=== PATIENT | male | born 1950 | race Caucasian/White ===

== ENCOUNTER 2024-08-26 06:13 | Day surgery (SDC) | payer MEDICARE, OTHER, SELFPAY ==
[2024-08-26] VITALS (11 sets, daily range): BP systolic 117–134; BP diastolic 52–84; PULSE 70–82; RESP 12–21; TEMP 36.2–36.6; O2SAT 93–97; BMI 25.4
[2024-08-26] MEDS: SODIUM CHLORIDE 0.9 % (FLUSH) 10 ML SYRINGE IVF (06:52)
[2024-08-26] MEDS: LACTATED RINGERS 1000 ML 1,000 ML 100 ML IV ×2 (06:52→09:05)
--- NOTE | 2024-08-26 07:30 | W.PM.H&PU ---
History & Physical Update History & Physical Update H&P Reviewed and patient assessed: No changes noted
[2024-08-26] MEDS: CEFAZOLIN 1 GM inj IVP (07:36)
--- NOTE | 2024-08-26 07:46 | SUR.OPER ---
PATIENT QUESTIONS ANSWERED SATISFACTORILY PREOPERATIVELY. PATIENT BROUGHT TO OR #1 PER CART. Patient positioned supine on OR #1 bed. PATIENT QUESTIONS ANSWERED SATISFACTORILY PREOPERATIVELY. Final approval of positioning by surgeon. BILATERAL ARMS TUCKED IN A NEUTRAL POSITION.
[2024-08-26] MEDS: BUPIVACAINE 0.25% 30 ML INJECTION (07:50)
--- NOTE | 2024-08-26 09:40 | P.ANES_ITS ---
Anesthesia Charges Start Date/Time Anesthesia Start Date: 08/26/24 Anesthesia Start Time: 07:27 Stop Date/Time Anesthesia Stop Date: 08/26/24 Anesthesia Stop Time: 09:29 Summary Extremes of Age - Over 70 or under 1: LINUX SUPPORT ENGINEER Coding CPT Codes CPT Codes: ANESTH REPAIR OF HERNIA - 61438 ([id number]) P2 - PATIENT W/MILD SYST DISEASE, QX - LINUX SUPPORT ENGINEER SVC W/ MD MED DIRECTION, QK - PAPER COLORER 2-4 CNCRNT ANES PROC Additional Codes: Summary - Extremes of Age - Over 70 or under 1: LINUX SUPPORT ENGINEER ([id number])
--- NOTE | 2024-08-26 09:40 | W.ANESCHARGE ---
Anesthesia Charges Start Date/Time Anesthesia Start Date: 08/26/24 Anesthesia Start Time: 07:27 Stop Date/Time Anesthesia Stop Date: 08/26/24 Anesthesia Stop Time: 09:29 Summary Extremes of Age - Over 70 or under 1: NAPHTHALENE STILL OPERATOR Coding CPT Codes CPT Codes: ANESTH REPAIR OF HERNIA - 48547 ([id number]) P2 - PATIENT W/MILD SYST DISEASE, QX - NAPHTHALENE STILL OPERATOR SVC W/ MD MED DIRECTION, QK - DEVELOPMENTAL THERAPIST 2-4 CNCRNT ANES PROC Additional Codes: Summary - Extremes of Age - Over 70 or under 1: NAPHTHALENE STILL OPERATOR ([id number])
--- NOTE | 2024-08-26 10:01 | PM.GSPRC ---
Operative Note Date of procedure: 08/26/24 Pre-op diagnosis: Left inguinal hernia Post-op diagnosis: Same, direct and indirect hernia Type of Procedure: Laparoscopic left inguinal hernia repair with placement of mesh, TEP Indications: Patient is a 73-year-old male who presented to clinic with a symptomatic left inguinal hernia. Risks and benefits of operative intervention were discussed at length with the patient. Risks included but was not limited to: Bleeding, infection, risk of damage to surrounding structures, possible need for additional procedures, possible need to convert to an open operation and postoperative complications such as pneumonia, pulmonary emboli or SC. All questions and concerns were addressed with the patient agreeing to proceed. Procedure Description: After discussing the risks and benefits of the procedure, the patient signed informed consent.? The operative site was marked and the patient was brought to the operating room and placed on the operating table in supine position.? Care was taken to pad the patient's pressure points.?? The patient was then intubated by anesthesia.?? The operative site was then prepped and draped in the usual sterile fashion.? A time-out was then performed. A curvilinear incision was made below the umbilicus. Dissection was carried down to subcutaneous tissue until the anterior rectus fascia was encountered. This was incised off the midline. The rectus muscles were then retracted exposing the posterior fascia. A space maker port with a dissecting balloon was then introduced. The preperitoneal space was inflated under direct vision. The balloon was then removed and the preperitoneal space insufflated. A 10 mm 30 degree scope was then advanced and the area was surveyed for bleeding. Dissection began on the left side. Leoncio's ligament and the pubic bone was exposed medially. A small direct hernia was identified and attached peritoneum dissected away from the anterior abdominal wall. Following this dissection was carried out laterally. A venous branch off of the epigastrics blood during dissection, so a 5 mm clip was placed for hemostasis. A large indirect defect was noted with large cord lipoma. The sac and cord lipoma was dissected free from the cord structures using a combination of sharp and blunt dissection. Once the sac was completely reduced, the cord structures were dissected circumfrentially and a piece of Parietex mesh for the appropriate side was placed into the abdomen. This was positioned around the cord structures. A Tacker was used to attach the mesh medially at Leoncio's ligament. Once this was completed the sac was placed on top of the mesh and the preperitoneal space desufflated under direct vision. The ports were removed. The fascia from the infraumbilical port was closed with 0 Vicryl. The skin incisions were closed with absorbable subcuticular suture. Sterile dressings were then applied. The scrotum was examined to ensure that both testicles were down. Instrument sponge and needle counts were correct at the end of the case. Findings: Indirect and direct inguinal hernia, left side. Anesthesia: GETA Surgeon: Amy Hays MD Estimated blood loss (mL): 5 Condition: stable Disposition: PACU
--- NOTE | 2024-08-26 10:03 | P.ANES_ITS ---
Anesthesia Charges Start Date/Time Anesthesia Start Date: 08/26/24 Anesthesia Start Time: 07:27 Stop Date/Time Anesthesia Stop Date: 08/26/24 Anesthesia Stop Time: 09:49 Summary Extremes of Age - Over 70 or under 1: APPRAISAL MANAGER Coding CPT Codes CPT Codes: ANESTH REPAIR OF HERNIA - 28270 ([id number]) P2 - PATIENT W/MILD SYST DISEASE, QK - ANIMAL CARETAKER SUPERVISOR 2-4 CNCRNT ANES PROC, QX - APPRAISAL MANAGER SVC W/ MD MED DIRECTION Additional Codes: Summary - Extremes of Age - Over 70 or under 1: APPRAISAL MANAGER ([id number])
--- NOTE | 2024-08-26 10:03 | W.ANESCHARGE ---
Anesthesia Charges Start Date/Time Anesthesia Start Date: 08/26/24 Anesthesia Start Time: 07:27 Stop Date/Time Anesthesia Stop Date: 08/26/24 Anesthesia Stop Time: 09:49 Summary Extremes of Age - Over 70 or under 1: MAINFRAME PROGRAMMER ANALYST Coding CPT Codes CPT Codes: ANESTH REPAIR OF HERNIA - 28717 ([id number]) P2 - PATIENT W/MILD SYST DISEASE, QK - LEAFLET OR NEWSPAPER DELIVERER 2-4 CNCRNT ANES PROC, QX - MAINFRAME PROGRAMMER ANALYST SVC W/ MD MED DIRECTION Additional Codes: Summary - Extremes of Age - Over 70 or under 1: MAINFRAME PROGRAMMER ANALYST ([id number])
--- NOTE | 2024-08-26 10:22 | SUR.PHASEI ---
patient met discharge criteria per anesthesia
--- NOTE | 2024-08-26 11:23 | P.ANES_ITS ---
Anesthesia Charges Start Date/Time Anesthesia Start Date: 08/26/24 Anesthesia Start Time: 07:27 Stop Date/Time Anesthesia Stop Date: 08/26/24 Anesthesia Stop Time: 09:49 Summary Extremes of Age - Over 70 or under 1: MDA Coding CPT Codes CPT Codes: ANESTH REPAIR OF HERNIA - 08693 ([id number]) P2 - PATIENT W/MILD SYST DISEASE, QX - BUILDING RIGGER SVC W/ MD MED DIRECTION, QK - ORE CHARGER 2-4 CNCRNT ANES PROC Additional Codes: Summary - Extremes of Age - Over 70 or under 1: MDA ([id number])
--- NOTE | 2024-08-26 11:23 | W.ANESCHARGE ---
Anesthesia Charges Start Date/Time Anesthesia Start Date: 08/26/24 Anesthesia Start Time: 07:27 Stop Date/Time Anesthesia Stop Date: 08/26/24 Anesthesia Stop Time: 09:49 Summary Extremes of Age - Over 70 or under 1: MDA Coding CPT Codes CPT Codes: ANESTH REPAIR OF HERNIA - 76199 ([id number]) P2 - PATIENT W/MILD SYST DISEASE, QX - L D RN SVC W/ MD MED DIRECTION, QK - SPINNER BOX 2-4 CNCRNT ANES PROC Additional Codes: Summary - Extremes of Age - Over 70 or under 1: MDA ([id number])
== END 2024-08-26 11:34 | disposition home or self-care (01) ==
PROVIDERS: PCP Surgery; Visit Provider Surgery
PROC: (CPT 49650; principal; 2024-08-26 07:30)
DX: K40.90 Unilateral inguinal hernia, without obstruction or gangrene, not specified as recurrent (principal)
CPT/HCPCS: 49650; 00832; 00840; 99100; C1781; J0330; J0665; J0690; J1100; J1171; J2405; J2704; J3010; J3490; J7120

== ENCOUNTER 2024-11-13 13:38 | Emergency (ER) | payer MEDICARE, OTHER, SELFPAY ==
[2024-11-13] VITALS (12 sets, daily range): BP systolic 151–176; BP diastolic 75–87; PULSE 79–104; RESP 11–23; TEMP 36.7; O2SAT 95–98; BMI 23.7
--- OUTSIDE RECORDS SUMMARY | 2024-11-13 13:40 | XMS_ITS | Continuity of Care Document ---
Author Name [facility] Organization [facility] Care Team Providers Care Laboratory Technology Teacher Name Role Phone [facility] Unavailable Unavailable Immunizations Combined list of available immunizations from the Department of Defense and Veterans Affairs facilities. Immunization Series Date Given Administered By Site Reaction Lot Number CVX Code Drug Water Taxi Boat Mate Status Comments Source COVID-19, mRNA, LNP-S, PF, 30 mcg/0.3 mL dose, murray-sucrose 2021 [employer] [place] (PFR) Not Given COVID-19, mRNA, LNP-S, PF, 30 mcg/0.3 mL dose, murray-sucr ose DoD influenza, high-dose, quadrivalent 2020 ASIM, () Not Given influenza , high-dose , quadrival ent DoD COVID-19, mRNA, LNP-S, PF, 30 mcg/0.3 mL dose 2020 [employer] [place] (PFR) Not Given COVID-19, mRNA, LNP-S, PF, 30 mcg/0.3 mL dose DoD influenza, recombinant, quadrivalent, injectable, preservative free 2019 ASIM, () Not Given influenza , recombina nt, quadrival ent,injec table, preservat manuela free DoD influenza, recombinant, quadrivalent, injectable, preservative free 2018 DHARA KELLEYD () Not Given influenza , recombina nt, quadrival ent,injec table, preservat manuela free DoD zoster recombinant 2018 DHARA KELLEYD () Not Given zoster recombina nt DoD Influenza, high dose seasonal 2016 ALLIEHOW SUSAN () Not Given Influenza , high dose seasonal DoD Influenza, high dose seasonal 2015 LALA CHOI () Not Given Influenza , high dose seasonal DoD Tdap 2015 LALA CHOI () Not Given Tdap DoD zoster live 2015 LALA CHOI () Not Given zoster live DoD zoster live 2013 LALA CHOI () Not Given zoster live DoD zoster live 2013 KINDLALA () Not Given zoster live DoD influenza virus vaccine, whole virus 1 1999 Unknown, Provider [id number] () complet ed influenza virus vaccine, whole virus DoD influenza virus vaccine, whole virus 2 1998 Unknown, Provider [id number] Sanofi Pasteur (PMC) complet ed influenza virus vaccine, whole virus DoD hepatitis A vaccine, adult dosage 1 1998 Unknown, Provider [id number] Merck (MSD) complet ed hepatitis A vaccine, adult dosage DoD influenza virus vaccine, whole virus 1 1997 Unknown, Provider [id number] 16 Radha (CON) complet ed influenza virus vaccine, whole virus DoD tetanus and diphtheria toxoids, adsorbed, preservative free, for adult use (2 Lf of tetanus toxoid and 2 Lf of diphtheria toxoid) 1 1990 Unknown, Provider 09 () complet ed tetanus and diphtheri a toxoids, adsorbed, preservat manuela free, for adult use (2 Lf of tetanus toxoid and 2 Lf of diphtheri a toxoid) DoD tetanus and diphtheria toxoids, adsorbed, preservative free, for adult use (2 Lf of tetanus toxoid and 2 Lf of diphtheria toxoid) 2 1990 Unknown, Provider 09 () complet ed tetanus and diphtheri a toxoids, adsorbed, preservat manuela free, for adult use (2 Lf of tetanus toxoid and 2 Lf of diphtheri a toxoid) DoD tetanus and diphtheria toxoids, adsorbed, preservative free, for adult use (2 Lf of tetanus toxoid and 2 Lf of diphtheria toxoid) 1 1990 Unknown, Provider 09 () complet ed tetanus and diphtheri a toxoids, adsorbed, preservat manuela free, for adult use (2 Lf of tetanus toxoid and 2 Lf of diphtheri a toxoid) DoD typhoid vaccine, parenteral, acetone-kille d, dried ([place] ) 1 1990 Unknown, Provider 53 () complet ed typhoid vaccine, parentera l, acetone-k illed, dried ([place] ) DoD yellow fever vaccine 1 1982 Unknown, Provider 37 () complet ed yellow fever vaccine [facility] trivalent poliovirus vaccine, live, oral 1 1981 Unknown, Provider 02 () complet ed trivalent polioviru s vaccine, live, oral DoD trivalent poliovirus vaccine, live, oral 1 1981 Unknown, Provider 02 () complet ed trivalent polioviru s vaccine, live, oral [facility] vaccinia (smallpox) vaccine 1 1979 Unknown, Provider 75 () complet ed vaccinia (smallpox ) vaccine [facility] Social History Combined list of available smoking, tobacco, and other social history from Department of Defense and Veterans Affairs facilities. Social History Type Response Date Comment Sour e This section is an empty social history section. DoD
--- OUTSIDE RECORDS SUMMARY | 2024-11-13 13:40 | XMS_ITS | Continuity of Care Document ---
Author Name [facility] Organization [facility] Care Team Providers Care Cloth Doubling Machine Operator Name Role Phone [facility] Unavailable Unavailable Immunizations Combined list of available immunizations from the Department of Defense and Veterans Affairs facilities. Immunization Series Date Given Administered By Site Reaction Lot Number CVX Code Drug Practical Nursing Instructor Status Comments Source COVID-19, mRNA, LNP-S, PF, 30 mcg/0.3 mL dose, murray-sucrose 2021 [employer] [place] (PFR) Not Given COVID-19, mRNA, LNP-S, PF, 30 mcg/0.3 mL dose, murray-sucr ose DoD influenza, high-dose, quadrivalent 2020 ASIM, () Not Given influenza , high-dose , quadrival ent DoD COVID-19, mRNA, LNP-S, PF, 30 mcg/0.3 mL dose 2020 [employer] [place] (PFR) Not Given COVID-19, mRNA, LNP-S, [...] vaccine, whole virus 1 1999 Unknown, Provider [id number] () complet ed influenza virus vaccine, whole virus DoD influenza virus vaccine, whole virus 2 1998 Unknown, Provider [id number] Sanofi Pasteur (PMC) complet ed influenza virus vaccine, whole virus DoD hepatitis A vaccine, adult dosage 1 1998 Unknown, Provider [id number] Merck (MSD) complet ed hepatitis A vaccine, adult dosage DoD influenza virus vaccine, whole virus 1 1997 Unknown, Provider [id number] Radha (CON) complet ed influenza virus [...] 37 () complet ed yellow fever vaccine [facility] trivalent poliovirus vaccine, live, oral 1 1981 Unknown, Provider 02 () complet ed trivalent polioviru s vaccine, live, oral DoD trivalent poliovirus vaccine, live, oral 1 1981 Unknown, Provider 02 () complet ed trivalent polioviru s vaccine, live, oral [facility] vaccinia (smallpox) vaccine 1 1979 Unknown, Provider 75 () complet ed vaccinia (smallpox ) vaccine [facility] Social History Combined list of available smoking, tobacco, and other social history from Department of Defense and Veterans Affairs facilities. Social History Type Response Date Comment Sour e This section is an empty social history section. DoD
--- OUTSIDE RECORDS SUMMARY | 2024-11-13 13:41 | XMS_ITS | Continuity of Care Document ---
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 Plan of Treatment Reminders Order Date Submit Date Provider Last Modified By Organization Details Last Modified Time Details Appointments LAB BLOOD DRAW 2024 10:30A M [facility] Not available Not available Not available ESTABLISH ED 20 2024 09:40A M LIZ Mcdowell Not available Not available Not available Lab PSA, total, serum or plasma 2024 06 025 [facility], [address] [facility], [place], [address], 10/27/2024 17:02:20 Referral None recorded. Procedures None recorded. Surgeries None recorded. Imaging None recorded. Medication Orders None recorded. Patient TargetsNo targets recorded. Patient InstructionsNo instructions recorded. Reason for Referral None Reported. Problems Name Problem SNOMED Code Status Onset Date Resolution Date Notes Provider Name and Address Organization Details Recorded Time Spinal stenosis of lumbar region 66030709 Active Pamella chow [facility] 3 12:03:19 Malignant neoplasm of skin 271923930 Active 2018 Pamella chow [facility] 3 12:03:19 Hypertensive disorder 49276421 Active 2012 Pamella chow [facility] 3 12:03:19 Adenomatous polyp of colon 722623922 Active 2017 Pamella chow [facility] 3 12:03:19 Rupture of Achilles tendon 236471705 Active Pamella chow [facility] 3 12:03:19 Hyperlipidemia 25330534 Active 2015 Pamella chow [facility] 3 12:03:19 Problem Notes Documentation Provider Name and Address Organization Details Recorded Time Urologist Consult Note : [facility] [address] [place] [id number], Dave Santi (Legal name: Herman Bonner) (id #[id number], : 1950) Documents sent via fax will include the following message: This fax may contain sensitive and confidential personal health information that is being sent for the sole use of the intended recipient. Unintended recipients are directed to securely destroy any materials received. You are hereby notified that the unauthorized disclosure or other unlawful use of this fax or any personal health information is prohibited. To the extent patient information contained in this fax is subject to 42 CFR Part 2, this regulation prohibits unauthorized disclosure of these records. If you received this fax in error, please visit [email or web address] to notify the sender and confirm that the information will be destroyed. If you do not have internet access, please call to notify the sender and confirm that the information will be destroyed. Thank you for your attention and cooperation. [ID:[id number]][facility] [address] [place] [address] [place] [phone] , Date: 10/27/2024RE: Herman Bonner, : 1950, PT ID #[id number] Min MD, I would like to thank you for referring Herman Bonner to our practice on 10/27/2024. I have enclosed a copy of the office evaluation for your records. Once again, thank you for allowing me to participate in the care of this patient. Sincerely, Electronically Signed by: LIZ ARGUELLO, VÍCTOR Encounter Reason/Date LAB/BLOOD DRAW 10/27/2024 - 02:20PM - [facility] History of Present IllnessNone recordedReview of SystemsNone recordedPhysical ExamNone recordedProcedure DocumentationBlood Draw/REGIONAL MERCHANDISING MANAGER/PSA RESULTS:Patient presents for the following blood tests: PSA total Patient drawn without difficulty. Results obtained: Will call with results. Drawn by: Patrick Graves/Plan1.Malignant neoplasm of [id number]: Malignant neoplasm of prostate PSA , TOTAL - Specimen source: Blood venous Return to Office [facility] for LAB BLOOD DRAW at [facility] on 01/19/2025 at 10:30 AM LIZ Arguello for ESTABLISHED 20 at [facility] on 01/27/2025 at 09:40 AM Nikole Min MD [address] [place] [address], [phone] 10/28/2024 10:36:29 Procedures Surgical History Date Name Laterality Status Provider Name and Address Organization Details Recorded Time 10/28/19 25 Blood Draw/REGIONAL MERCHANDISING MANAGER/PSA RESULTS completed Patrick Peter [facility] 10/27/2024 15:13:31 07/22/19 25 Blood Draw/REGIONAL MERCHANDISING MANAGER/PSA RESULTS completed Patrick Peter [facility] 07/21/2024 11:26:05 07/08/[address] Scan-Skull Base to Mid Thigh completed Debra Bonilla [facility] 07/06/2024 21:37:28 07/01/19 25 Blood Draw/REGIONAL MERCHANDISING MANAGER/PSA RESULTS completed Melany Neal [facility] 07/01/2024 11:42:54 06/27/19 24 Colonoscopy completed Pamella Barker [facility] 07/10/2023 15:17:28 06/26/19 23 Blood Draw/REGIONAL MERCHANDISING MANAGER/PSA RESULTS completed Jenny Gonzalez [facility] 06/26/2022 11:59:43 06/27/19 22 Catheter Removal completed Alexia Cornejo [facility] 06/27/2021 10:17:53 07/05/19 21 Prostate Biopsy Procedure completed Nikole Min MD [address] [facility],[address], [place], [address], [facility] 07/05/2020 13:38:34 07/05/19 21 URONAV completed Edu Salas [facility] 07/05/2020 11:40:03 07/05/19 21 Gentamicin Injection completed Madie Poe [facility] 07/05/2020 11:04:24 09/12/19 18 Diagnostic colonoscopy completed Not Available Health Note 06/24/2022 13:52:04 Removal of prostate completed Not Available Health Note 06/24/2022 13:52:04 Removal of sperm duct(s) completed Not Available Health Note 06/24/2022 13:52:04 Excision epiphyseal bar completed Not Available Health Note 06/24/2022 13:52:04 Imaging Results None recorded. Procedure Notes None recorded. Medical Equipment None Reported. Allergies No known drug allergies Medications Name Sig Start Date Stop Date Status Note LastModified by Organization Details LastModified Time cyclobenz aprine 10 mg tablet Take 1 Tablet (10 mg) by mouth three times daily 07/10 completed HN: Patient reports no longer taking Not Available Not Available Not Available atorvasta tin 20 mg tablet 20 mg by oral route. active Not Available Not Available No t Available chlorthal idone 25 mg tablet 25 mg by oral route. active Not Available Not Available No t Available bacitraci n zinc 500 unit/gram topical ointment 06/26 completed Not Available Not Available Not Available docusate sodium 100 mg capsule Take 100 mg by oral route. 06/26 completed Not Available Not Available Not Available metoprolo l succinate ER 25 mg tablet,ex tended release 24 hr Take 1 tablet every day by oral route. active Not Available Not Available No t Available gentamici n 40 mg/mL injection solution 160mg prior to procedur e 09/08 completed HN: Patient reports no longer taking HN: Patient reports no longer taking Not Available Not Available Not Available methylpre dnisolone 4 mg tablets in a dose pack TAKE BY MOUTH INSTRUCT ED PER PACKAGIN G 06/26 completed Not Available Not Available Not Available oxycodone 5 mg tablet 5 mg by oral route. 09/08 completed HN: Patient reports no longer taking HN: Patient reports no longer taking Not Available Not Available Not Available tadalafil 10 mg tablet 1-2 tablets PO 2x a week 06/26 completed Not Available Not Available Not Available sildenafi l (pulmonar y hypertens ion) 20 mg tablet Take 1-5 tablets, on an empty stomach, 1 hour prior to sexual activity 07/10 completed HN: Patient reports no longer taking Not Available Not Available Not Available Vitamin D3 1000iu 1/day active HN: Patient reports no longer taking Not Available Not Available Not Available multivita min Don t know 1/day 06/26 completed Not Available Not Available Not Available cholecalc iferol (vitamin D3) 25 mcg (1,000 unit) tablet 1000 units by oral route. active Not Available Not Available No t Available cholecalc iferol (vitamin D3) 125 mcg (5,000 unit) tablet 5000 units by oral route. 06/17 completed Not Available Not Available Not Available GaviLyte- G 236 gram-22.7 4 gram-6.74 gram-5.86 gram oral solution Drink 2 liters the day before colonosc opy and 2 liters 6 hours before colonosc opy appointm ent active HN: Patient reports no longer taking Not Available Not Available Not Available polyethyl alfa glycol 3350 4 gram oral powder packet 07/03 completed Not Available Not Available Not Available Posluma 296 MBq/mL to 5,846 MBq/mL intraveno us solution Inject 8 mCi by intraven ous route. 2024 active HN: Patient reports no longer taking Not Available Not Available Not Available Vitals Date Recorded Body height Provider Name an d Address Organization Details Last Updated DateTime 10/27/2024 185.42 cm Patrick [facility] 10/27/2024 15:13:11 Social History Question Answer Notes LastModified by Organizat ion Details LastModified Time Tobacco Smoking Status Never Smoker Not Available Health Note 07/17/2024 10:22:05 Do You Have An Advance Directive? Yes [email or web address] Information not available 07/17/2024 What Is Your Level Of Caffeine Consumption? Moderate [email or web address] Information not available 07/17/2024 How Much Tobacco Do You Chew? None [email or web address] Information not available 07/17/2024 Race White Information no t available 01/10/2022 Ethnicity Not /Lati no Information not available 01/10/2022 Preferred Language [place] Information not available 01/10/2022 Recreational Drug Use No Information not available 01/10/2022 Could You Be ? No Information not available 06/26/2022 Do You Have A Medical Power Of Golf Teacher? Yes [email or web address] Information not available 07/17/2024 What Was The Date Of Your Most Recent Tobacco Screening? 07/21/2024 [email or web address] Information not available 07/17/2024 Have You Ever Been Counseled For Unhealthy Alcohol Use? No Information not available 07/10/2023 What Is Your Relationship Status? [email or web address] Information not available 07/17/2024 Are You Sexually Active? No [email or web address] Information not available 07/17/2024 Has Tobacco Cessation Counseling Been Provided? No [email or web address] Information not available 07/21/2024 On What Date Was Tobacco Cessation Counseling Provided? 07/21/2024 [email or web address] Information not available 07/21/2024 How Many Days In The Past Year Have You Consumed 5 Or More Drinks? 0 [email or web address] Information no t available 07/17/2024 Sex: Male Functional Status Question Answer Note LastModified by Organizat ion Details LastModified Time Do you use any illicit or recreational drugs? No [email or web address] Information not available 07/17/2024 Do you or have you ever used any other forms of tobacco or nicotine? No [email or web address] Information not available 06/24/2022 What is your level of alcohol consumption? Occasional [email or web address] Information not available 07/17/2024 Do you or have you ever used smokeless tobacco? Never used smokeless tobacco [facility]-685 Information not available 07/17/2024 Are you currently employed? No Information not available 06/26/2022 Do you or have you ever used e-cigarettes or vape? Never used electronic cigarettes [facility]-685 Information not available 07/17/2024 Mental Status None recorded. Family History Relationship Description Onset Age of this Age Resolved Age Notes LastModified by Organization Details LastModified Time Unspecified Relation Family history of cardiac disorder [id number]-685 Not available 2023 16:29:23 Medical History Condition Response Diabetes N Sexually Transmitted Infection N Other N Bleeding Disorder N High Blood Pressure Y Kidney Stones N High Cholesterol Y GERD/Acid Reflux N Heart Disease N Cancer Y Lung Disease N Depression N Immunizations Vaccine Type Date Status Note Provider Nam e and Address Organization Details Recorded Time SARS-COV-2 (COVID-19) vaccine, UNSPECIFIED 3 completed Not Available Health Note 07/06/2023 16:29:28 influenza, unspecified formulation 3 completed Not Available Health Note 07/06/2023 16:29:28 zoster live 9 completed Pamella Middle[place] null, [facility] 07/10/2023 15:12:04 pneumococcal polysaccharide PPV23 7 completed Not Available Health Note 07/06/2023 16:29:28 Pneumococcal conjugate PCV 13 7 completed Not Available Health Note 07/06/2023 16:29:28 Influenza, recombinant, quadrivalent, PF 0 completed Pamella [place] null, [facility] 07/10/2023 15:12:03 Influenza, recombinant, quadrivalent, PF 9 completed Pamella Mj null, [facility] 07/10/2023 15:12:03 zoster recombinant 9 completed Pamella Mj null, [facility] 07/10/2023 15:12:03 zoster recombinant 9 completed Pamella Mj null, [facility] 07/10/2023 15:12:04 Influenza, high-dose, quadrivalent, PF 1 completed Pamella Mj null, [facility] 07/10/2023 15:12:04 COVID-19, mRNA, LNP-S, PF, 30 mcg/0.3 mL dose 1 completed Pamella [place] null, [facility] 07/10/2023 15:12:04 COVID-19, mRNA, LNP-S, PF, 30 mcg/0.3 mL dose 1 completed [facility]ella [place] [facility], [facility] 07/10/2023 15:12:04 COVID-19, mRNA, LNP-S, PF, 30 mcg/0.3 mL dose 1 completed Pamella Mj null, [facility] 07/10/2023 15:12:04 Tdap 6 completed Pamella [place] null, [facility] 07/10/2023 15:12:04 zoster live 6 completed Pamella [place] null, [facility] 07/10/2023 15:12:04 zoster live 4 completed Pamella Middlebranch null, [facility] 07/10/2023 15:12:04 Influenza, high-dose, trivalent, PF 6 completed Pamella Mj null, [facility] 07/10/2023 15:12:04 Influenza, high-dose, trivalent, PF 7 completed Pamella Mj null, [facility] 07/10/2023 15:12:04 Influenza, high-dose, trivalent, PF 5 completed Pamella Mj null, [facility] 07/10/2023 15:12:04 Influenza, high-dose, trivalent, PF 8 completed Pamella Middlebranch null, [facility] 07/10/2023 15:12:04 Influenza, split virus, quadrivalent, PF 4 completed Pamella Middlebranch null, [facility] 07/10/2023 15:12:04 zoster live 0 completed Not Available Health Note 07/17/2024 10:22:09 influenza, unspecified formulation 4 completed Not Available Health Note 07/17/2024 10:22:09 pneumococcal polysaccharide PPV23 0 completed Not Available Health Note 07/17/2024 10:22:09 SARS-COV-2 (COVID-19) vaccine, UNSPECIFIED 4 completed Not Available Health Note 07/17/2024 10:22:09 COVID-19, mRNA, LNP-S, PF, 50 mcg/0.5 mL 4 completed Not Available [facility] 10/27/2024 15:14:13 COVID-19, mRNA, LNP-S, PF, 30 mcg/0.3 mL dose, murray-sucrose 2 completed Soledad Holly null, [facility] 07/21/2024 11:01:41 Pneumococcal conjugate PCV 13 6 completed Pamella Middlebranch null, [facility] 07/10/2023 15:12:04 influenza, unspecified formulation 1 completed Pamella Mj null, [facility] 07/10/2023 15:12:04 pneumococcal polysaccharide PPV23 7 completed Pamella Mj null, [facility] 07/10/2023 15:12:04 SARS-COV-2 (COVID-19) vaccine, UNSPECIFIED 1 completed Pamella Middlebranch null, [facility] 07/10/2023 15:12:04 SARS-COV-2 (COVID-19) vaccine, UNSPECIFIED 1 completed Pamella Middlebranch null, [facility] 07/10/2023 15:12:04 Pneumococcal conjugate PCV 13 6 completed Pamella Mj null, [facility] 06/26/2022 12:03:28 pneumococcal polysaccharide PPV23 7 completed Pamella Middlebranch null, [facility] 06/26/2022 12:03:28 influenza, unspecified formulation 1 completed Pamella Middlebranch null, [facility] 07/10/2023 15:12:04 pneumococcal polysaccharide PPV23 7 completed Pamella Mj null, [facility] 06/26/2022 12:03:28 SARS-COV-2 (COVID-19) vaccine, UNSPECIFIED 2 completed Soledad Holly null, [facility] 07/21/2024 11:01:41 influenza, unspecified formulation 1 completed Pamella Frankram null, [facility] 07/10/2023 15:12:04 Pneumococcal conjugate PCV 13 6 completed Pamella Frankram null, [facility] 06/26/2022 12:03:28 SARS-COV-2 (COVID-19) vaccine, UNSPECIFIED 2 completed Soledad Holly null, [facility] 07/21/2024 11:01:41 pneumococcal polysaccharide PPV23 7 completed Pamella Mj null, [facility] 06/26/2022 12:03:28 influenza, unspecified formulation 1 completed Pamella Frankram null, [facility] 07/10/2023 15:12:04 influenza, unspecified formulation 2 completed Pamella Barker null, [facility] 06/26/2022 12:03:28 Pneumococcal conjugate PCV 13 6 completed Pamella Frankram null, [facility] 06/26/2022 12:03:28 SARS-COV-2 (COVID-19) vaccine, UNSPECIFIED 2 completed Soledad Holly null, [facility] 07/21/2024 11:01:41 pneumococcal polysaccharide PPV23 7 completed Pamellamarguerite Frankram [facility] 06/26/2022 12:03:28 Past Encounters Encounter ID Performer Location Encounter Start Date Encounter Closed Date Diagnosis/Indication Diagnosis SNOMED-CT Code Diagnosis ICD10 Code Diagnosis Note [id number] LIZ [facility] [address] [phone] 10/27/2024 15:12:14 10/27/2024 15:14:12 Malignant neoplasm of prostate [id number] C61 Health Concerns Section Related Observation LastModified by Organization Detai ls LastModified Time None Recorded Concern Status LastModified by Organization Details LastModified Time None Recorded Payers Encounter Date Sequence Insurance Name Policy Number Policy Brower Covered Member ID Brower Member ID Guarantor Name 10/27/2024 2 FOR LIFE ( - MEDICARE SUPPLEMENT) Herman Bonner [id number] Herman Bonner 10/27/2024 1 [place] [facility] [employer] Herman Bonner [id number] Herman Bonenr
--- OUTSIDE RECORDS SUMMARY | 2024-11-13 13:41 | XMS_ITS | Clinical Summary ---
Author Organization [employer] [facility] Address [address] [place] [id number] Care Team Providers Care Ham Smoker Name Role Phone Zaire Duong MD Primary Care Provider [phone] Allergies No known active allergies Medications cholecalciferol (VITAMIN D3) 1,000 unit tablet Take 1,000 units by mouth once daily. Active atorvastatin (LIPITOR) 20 mg tabletIndications:H yperlipidemia, unspecified hyperlipidemia type TAKE 1 TABLET DAILY 90 Tablet 3 4 Active chlorthalidone (HYGROTON) 25 mg tabletIndications:H ypertension, unspecified type TAKE 1 TABLET DAILY 90 Tablet 3 4 Active metoprolol succinate (TOPROL XL) 25 mg Sustained-Release tabletIndications:H ypertension, unspecified type TAKE 1 TABLET DAILY 90 Tablet 2 4 Active Active Problems Problem Noted Date Diagnosed Date Spondylolisthesis, lumbar region 05/22/2024 Skin cancer screening 03/04/2024 Skin cancer 02/13/2022 Overview (09/02/2024): 02/07/22 left shoulder, superficial BCC excised 03/09/[address] Ocampo 02/07/22: right posterior shoulder, nBCC, Excised 03/09/[address] Ocampo 01/23/2019: right upper back, nBCC, ED&C on 03/11/2010 with Nida Ortiz PA-C Prostate cancer 01/13/2022 Adenomatous colon polyp 04/17/2018 Overview (06/29/2023): Colonoscopy 04/2018 polyp, repeat in 5 years Colonoscopy 06/2023 TA, repeat in 7 years Hyperlipidemia, unspecified 11/17/2015 Hypertension 03/17/2013 Achilles tendon tear Spinal stenosis of lumbar region Resolved Problems Problem Noted Date Diagnosed Date Resolved Date Basal cell carcinoma (BCC) o f skin of right upper extremity including shoulder 01/13/202202/13 Skin cancer 01/29/2019 01/13/2022 Overview (03/11/2019): 01/23/19 right upper back, nBCC, ED&C done 03/11/19 Encounters Date Type Department Care Team Description 09/10/2024 9:15 AM CDT Office Visit [facility] [address] [place] [address] Amy Hays MD Post-op (Left inguinal hernia repair) 09/10/2024 Travel 09/05/2024 Travel 09/02/2024 1:00 PM CDT Office Visit [facility] [address] [address] Myla Ocampo MD Derm Problem 09/02/2024 Travel 08/28/2024 Travel 08/26/2024 9:00 AM CDT Office Visit [facility] [address] [place] [address] Amy Hays MD 08/26/2024 Orders Only [facility] Scanner 1 scan: (1-Ord) [facility], LAPAROSCOPIC LT INGUINAL HERNIA REPAIR W/PLACEMENT OF MESH, TEP, 08/26/2024 from Last 3 Months Immunizations Immunization Administration Dates Next Due COVID-19 vaccine ([employer] 30mcg/0.3mL) JARVIS MONTAÑO 08/08/2020,07/18/2020 DTaP 05/14/2005 Hepatitis A (Adult) 10/29/1998 Influenza RIV4 (Age 18+ Year s) PRESERV FREE 02/16/2020,02/26/2019 Influenza Virus, Unspecified 04/22/2021 Influenza, High-dose Inactivated 019,05/08/2018,01/27/2017,2015,02/01/2015 Influenza, High-dose Quadriv alent Inactivated 03/01/2023,03/18/2022,04/22/2021 Influenza, IIV4 03/30/2014 Influenza, Inactivated IIV3 (Age 65+ Years) Preserv Free 03/10/2024 Influenza, Whole Virus 04/13/2000 Oral Polio Vaccine 10/12/1981,07/12/1981 Pneumococcal Poly,23-Valent (Pneumovax) 11/20/2016 Pneumococcal conj 13-Valent (Prevnar 13) 11/12/2015 Smallpox (Vaccinia) Live [id number] 01/13/1980 Td (Age >=7 Years) 08/05/1990,07/08/1990, 991 Tdap 11/19/2015 Typhoid Parenteral,Acetone Killed,Dried([employer] ) 06/14/1990 Yellow Fever 10/12/1982 Zoster (Shingrix-RZV, recombinant) 02/26/2019, Zoster (Zostavax-ZVL, live) 09/27/2015, 4 Family History Medical History Relation Name Comments Cancer Brother 1 of Lung Ca ncer/Prostate Cancer Cancer-prostate Brother 2 Psychiatric illness Brother 2 Paranoid Schizophrenia/Substance abuse Unknown Brother 3 Jeri Gehrings' l onel disease Cancer-breast Daughter Unknown Father of Jossue ons/Alzheimers Cancer Mother 07/2013 Abigail g Cancer Cancer-prostate Paternal Grandfather Good Health Sister Relation Name Status Comments Brother 1 Brother 2 Brother 3 Daughter Father Mother Paternal Grandfather Sister Social History Tobacco Use Types Packs/Day Years Used Date Smoking Tobacco: Never Smokeless Tobacco: Never Tobacco Cessation:Counseling Given: Yes Alcohol Use Standard Drinks/Week Comments Yes 6 (1 standard drink = 0.6 oz pur e alcohol) PHQ-2 Answer Date Recorded PHQ-2 TOTAL SCORE 0 03/10/2024 Social Connections Answer Date Recorded Do you often feel lonely or isolated from those around you? 0 03/10/2024 Alcohol Use Answer Date Recorded How often do you have a drink containing alcohol ? 3 01/13/2022 How many drinks containing a lcohol do you have on a typical day when you are drinking? 0 01/13/2022 How often do you have five or more drinks on one occasion? 0 01/13/2022 Financial Resource Strain Answer Date R ecorded Difficulty of Paying Living Expenses 3 03/10/2024 Difficulty of Paying Living Expenses Not on file 03/10/2024 Food Insecurity Answer Date Recorded Do you worry your food will run out before you are able to buy more? 1 03/10/2024 Transportation Needs Answer Date Record ed Does lack of transportation keep you from medica l appointments? 1 03/10/2024 Does lack of transportation keep you from work, meetings or getting things that you need? 1 03/10/2024 Housing Stability Answer Date Recorded What is your housing situation today? 1 03/10/2024 Utilities Answer Date Recorded Do you have trouble paying f or utilities (for example, heat, electricity, water, phone)? 1 03/10/2024 Sex and Gender Information Value Date Recorded Sex Assigned at Male 12/01/2019 9:26 AM CDT Legal Sex Male 1:11 PM CDT Gender Identity Male 12/01/2019 9:26 AM CDT Sexual Orientation Straight 12/01/2019 9: 26 AM CDT Obstetrics History Last Filed Vital Signs Vital Sign Reading Time Taken Comments Blood Pressure 154/74 09/10/2024 9:10 AM CDT Pulse 77 09/10/2024 9:10 AM CDT Temperature 36.7 C (98 F) 06/18/2021 8:00 AM TRANSPORTATION JOB TITLES Respiratory Rate 20 06/27/2023 10:48 AM TRANSPORTATION JOB TITLES Oxygen Saturation 99% 09/10/2024 9:10 AM CDT Inhaled Oxygen Concentration - - Weight 84.8 kg (187 lb) 08/07/2024 9:57 AM CDT Height 186 cm (6' 1.23) 08/07/2024 9:57 AM CDT Body Mass Index 24.52 08/07/2024 9:57 AM CDT Plan of Treatment Upcoming Encounters Date Type Department Care Team (Late st Contact Info) Description 03/03/2025 1:00 PM CDT Office Visit [facility] [address] [place] [address] [place] [address] Myla Ocampo MD [address] [address] Health Maintenance Due Date Last Done Comments RSV vaccine for adults or (1 - Risk 60-74 years 1-dose series) 2010 COVID-19 vaccine series (2023- season) 2024 01/28/2024, 03/22/2023, 02/02/2022, Additional history exists Depression screening for age 12+ 03/10/2025 03/10/2024, 03/10/2024, 02/15/2023, Additional history exists Medicare Wellness for age 65+ 03/11/2025 03/10/2024, 01/13/2022, 12/23/2018, Additional history exists BMI (ht and wt on same day) for age 18+ 08/07/2025 08/07/2024, 05/22/2024, 03/10/2024, Additional history exists Tetanus booster 11/18/2025 11/19/2015, 07/13, 07/08/1990, Additional history exists Lipids for age 45-75 03/10/2029 03/10/2024, 02/15/2023, 01/13/2022, Additional history exists Colonoscopy through age 75 06/27/203006/27, 06/27/2023, 04/16/2018, Additional history exists (IA) Tdap Completed 11/19/2015 Hepatitis C screening for age 18-79 Completed 11/20/2016 Pneumococcal series for age 50+ Completed 11/20/2016, 11/12/2015 Zoster (shingles) series for age 50+ Completed 02/26/2019, 12/23/2018, 09/27/2015, Additional history exists Influenza Vaccine Completed 03/10/2024, , 02/16/2020, Additional history exists Hepatitis B series for 19+ Aged Out N o longer eligible based on patient's age to complete this topic Procedures Procedure Name Priority Date/Time Associated Diagnosis Comments SCAN-OPERATIVE/PROC EDURE REPORT 08/26/2024 12:00 AM CDT LIPID PANEL Routine 03/10/2024 2:38 PM CDT Hyperlipidemia, unspecified hyperlipidemia type COLONOSCOPY 06/27/2023 9:18 AM TRANSPORTATION JOB TITLES ANTI HCV Routine 11/20/2016 2:55 PM CDT Need for hepatitis C screening test from Last 3 Months or Most Recently Relevant to Health Maintenance Results * SCAN-OPERATIVE/PROCEDURE REPORT (08/26/2024 12:00 AM CDT) us Scanner OTHER Final Result * LIPID PANEL (03/10/2024 2:38 PM CDT) CHOLESTEROL, TOTAL 157 <200 mg/dL [facility] HDL CHOLESTEROL 61 > OR = 40 mg/dL [facility] TRIGLYCERIDES 113 <150 mg/dL [facility] LDL-CHOLESTEROL 76 mg/dL (calc) [facility] Comment: Reference range: <100 Desirable range <100 mg/dL for primary prevention; <70 mg/dL for patients with CHD or diabetic patients with > or = 2 CHD risk factors. LDL-C is now calculated using the Segundo-Arreola calculation, which is a validated novel method providing better accuracy than the Friedewald equation in the estimation of LDL-C. Segundo SS et al. UNA. 2013;310(19): 7595-9899 (http://education.[employer]/faq/EHD307) CHOL/HDLC RATIO 2.6 <5.0 (calc) [facility] NON HDL CHOLESTEROL 96 <130 mg/dL (calc) [facility] Comment: For patients with diabetes plus 1 major ASCVD risk factor, treating to a non-HDL-C goal of <100 mg/dL (LDL-C of <70 mg/dL) is considered a therapeutic option. Blood BLOOD SPECIMEN / Unknown 03/10/2024 2:38 PM CDT 03/10/2024 2:38 PM CDT us Zaire Duong MD CHEMISTRY Final Resu lt [facility] [address] [place] [address], [facility] [address] [place] [address] * COLONOSCOPY (06/27/2023 9:18 AM TRANSPORTATION JOB TITLES) 06/27/2023 9:18 AM TRANSPORTATION JOB TITLES Narrative Transcriptions Segundo Larson MD - 06/27/2023 10:44 AM CST Patient Name: Herman Bonner Procedure Date: 06/27/2023 Gender: Male Date of : 1950 Admit Type: Outpatient Procedure: Colonoscopy Proceduralist: Segundo Larson MD , Pamella Baeza RN (Nurse), Francoise Greer RN (Nurse) Indications/Pre-Op Diagnosis: High risk colon cancer surveillance:Personal history of adenoma less than 10 mm in size, Last colonoscopy: April 2018 Medications: Fentanyl 100 micrograms IV, Midazolam 4 mgIV, The level of sedation administered wasmoderate Procedure Description: The patient had risks, benefits and alternatives explained to andgave informed consent. The patient had a stable cardiopulmonary status and judged an adequate candidate for conscious sedation. The endoscope [id number]-[id number] was passed through the anus andadvanced to the cecum, identified by appendiceal orifice and ileocecal valve.The colonoscopy was performed without difficulty. The patient toleratedthe procedure well. The quality of the bowel preparation was good. The ileocecal valve, appendiceal orifice, and rectum were photographed. Complications: No immediate complications. Estimated Blood Loss & Specimen: Estimated blood loss: none. Specimen collected - Yes and sent to Laboratory Findings: The perianal and digital rectal examinations were normal. Two sessile polyps were found in the descending colon. The polypswere 3 to 4 mm in size. These polyps were removed with a cold snare.Resection and retrieval were complete. Scattered small-mouthed diverticula were found in the sigmoid colonand descending colon. The exam was otherwise without abnormality. Impressions/Post-Op Diagnosis: - Two 3 to 4 mm polyps in the descending colon, removed with a cold snare. Resected and retrieved. - Diverticulosis in the sigmoid colon and in the descending colon. - The examination was otherwise normal. Recommendation: - Patient has a contact number available for emergencies. The signsand symptoms of potential delayed complications were discussed with the patient. Return to normal activities tomorrow. Written discharge instructions were provided to the patient. - Resume previous diet. - Continue present medications. - Await pathology results. - Repeat colonoscopy is recommended. The colonoscopy date will be determined after pathology results from today's exam become available for review. - Avoid heavy lifting greater than 30 lbs., asprin/ nonsteroidal medicines, exercise and strenuous activity for 2 weeks. Moderate Sedation: A time out was performed before the procedure. Moderate (conscious) sedation was administered by the endoscopy nurse and supervised bythe endoscopist. The following parameters were monitored: oxygensaturation, heart rate, blood pressure, EKG, CO2, respiratory rate, adequacy of pulmonary ventilation and reponse to care. Please refer to the patient's medical record flowsheets and nursing notes for moderate sedation details. Total physician intraservice time was 23 minutes. Segundo Larson MD 06/27/2023 10:43:53 AM This report has been signed electronically. Note Initiated On: 06/27/2023 9:18 AM Procedure Code(s): --- Professional --- 76859, Colonoscopy, flexible; with removalof tumor(s), polyp(s), or other lesion(s) bysnare technique Diagnosis Code(s): --- Professional --- Z86.010, Personal history of colonicpolyps D12.4, Benign neoplasm of descending colon K57.30, Diverticulosis of large intestine without perforation or abscess withoutbleeding CPT copyright 2021 [employer]. All rights reserved. The codes documented in this report are preliminary and upon cap cutter reviewmay be revised to meet current compliance requirements. Scope In: 10:12:02 AM Scope Withdrawal Time 0 hours 17 minutes 20 seconds Scope Out: 10:33:38 AM us Segundo Larson MD PROCEDURE ORD Final Res ult * ANTI HCV [28628.2] (11/20/2016 2:55 PM CDT) HEPATITIS C ANTIBODY Non-Reacti ve Non-Reacti ve 11/20/2016 8:20 PM CDT [facility] Blood BLOOD SPECIMEN / Unknown Venipuncture / Unknown 11/20/2016 2:55 PM CDT 11/20/2016 2:55 PM CDT Narrative [facility] - 11/20/2016 8:20 PM CDT Antibodies to HCV not detected; does not exclude the possibility of exposure to HCV. us Zaire Duong MD SEND OUTS Final Resu lt [facility] [address] [place] [address], [place] from Last 3 Months or Most Recently Relevant to Health Maintenance Insurance [employer] MEDICARE PB ONLY MEDICARE PART B HB ONLY MEDICARE PART A HB ONLY Advance Directives Documents on File Type Date Recorded Patient Supervisor Tunnel [employer]ading Expl anation Healthcare Directive 10/02/2019 020 * Full Code (Latest Code Status on File) Date Activated Date Inactivated Comments 06/17/2021 5:40 AM 06/18/2021 3:09 PM Question Answer Comments Code Status Discussion: Unable to Assess Preferences, Provider to review later Care Teams Ham Smoker Relationship Specialty Start Date End Date Zaire Duong MD [address] [place] [address] PCP - General Family Practice 03/11/13
--- OUTSIDE RECORDS SUMMARY | 2024-11-13 13:42 | XMS_ITS | Data Portability ---
Author Organization [facility], [facility] Address [address] [place] [address] Care Team Providers Care Dietetic Technician Registered Name Role Phone RICARDO HWANG Primary Care Provider RICARDO HWANG Referring Provider NIKOLE MIN Referring Provider Assessment Encounter Date Assessment Date Assessment LastModified by Organization Details LastModified Time 07/10/2023 07/10/2023 72 year old male with history of prostate cancer who is now s/p radical prostatectomy with Dr. Min on 06/17/21 [email or web address] Not available 07/10/2023 15:34:43 07/21/2024 07/21/2024 73 year old male with history of prostate cancer who is now s/p radical prostatectomy with Dr. Min on 06/17/21 [email or web address] Not available 07/21/2024 12:14:15 Plan of Treatment Reminders Order Date Submit Date Provider Last Modified By Organization Details Last Modified Time Details Appointments LAB BLOOD DRAW 2024 10:30A M JT MAGUIRE Not available Not available Not available ESTABLISH ED 20 2024 09:40A M LIZ Mcdowell Not available Not available Not available Lab PSA, total, serum or plasma [address] [facility], [address], [place], [address], 10/27/2024 17:02:20 PSA, total, serum or plasma [address] [facility], [address], [address], [place], [address], 07/22/2024 12:19:14 PSA, total, serum or plasma [address] [facility], [address], [address], [place], [address], 07/01/2024 13:09:35 PSA, total, serum or plasma 2023 024 [facility], [address] [place], [address], 01/17/2024 05:12:34 PSA, total, serum or plasma 2023 [facility] [address] [place], [address], 05/19/2024 08:20:40 Referral None recorded. Procedures None recorded. Surgeries None recorded. Imaging None recorded. Medication Orders Posluma 296 MBq/mL to 5,846 MBq/mL intraveno us solution 2024 025 [id number] [id number], [address], [place], [address], 07/17/2024 10:22:08 Patient TargetsNo targets recorded. Patient Instructions Encounter Date Encounter Id Patient Instructions Last Modified By Organization Details Last Modified Time 07/10/2023 [id number] Hx of prostate cancer: - Due to positive surgical margin, we will continue to check his PSA every 6 months with an OV in 1 year Erectile dysfunction: - He is not interested in pursuing additional treament chucky Not available 07/10/2023 15:36:19 07/21/2024 [id number] Hx of prostate cancer: - Repeat PSA today and again in 3 months - We discussed that his PSA could be benign prostate cells vs. recurrence. Reassured low PSA and negative PSMA PET - Will keep a close eye on his PSA with every 3 month PSA checks. If it were to continue to rise, will repeat PSMA PET scan [email or web address] Not available 07/21/2024 12:15:21 Reason for Referral None Reported. Results Created Date Observation Date Name Description Value Unit Range Abnormal Flag Note LastModifiedBy Organization Detail LastModifiedTime 07/01/19 25 07/01/2024 PSA, TOTAL PSA, total 0.11 NG/mL 0.00-4 .00 This lab resul t is being provi ded to you and your provi danielito at the same time in [facility] with the u ry Cures Act. Your provi danielito may not have had time to revie w and make recom menda tions based on the resul t. Pleas e allow up to one week for provi danielito revie w. Not Available [facility] [address], [place], [address], 07/01/2024 13:09:34 07/22/19 25 07/21/2024 PSA, TOTAL PSA, total 0.10 NG/mL 0.00-4 .00 This lab resul t is being provi ded to you and your provi danielito at the same time in [facility] with the u ry Cures Act. Your provi danielito may not have had time to revie w and make recom menda tions based on the resul t. Pleas e allow up to one week for provi danielito revie w. Not Available [facility] [address], [place], [address], 07/22/2024 12:19:14 10/28/19 25 10/27/2024 PSA, TOTAL -ROCH E PSA, total <0.10 NG/mL 0.00-4 .00 This resul t is repor ronaldo using a new metho dolog y for Total PSA. Previ ous resul ts using the old metho d are not direc tly paula rable . The expec ronaldo varia tion is small ( appro ximat jonathan 1% diffe rence https ://pu bmed. ncbi. nlm.n ih.go v/346 46273 /), but pleas e consi danielito a new basel ine for the patie nt. This lab resul t is being provi ded to you and your provi dnaielito at the same time in compl iance with the Centu ry Cures Act. Your provi danielito may not have had time to revie w and make recom menda tions based on the resul t. Bernard alberts allow up to one week for provi danielito revie w. Not Available [facility] [address], [place], [address], 10/27/2024 17:02:20 07/10/19 25 07/10/[address], verte x to mid thigh , prost ate [facility] Patien t Name: SARAH BONNER 32 Patien t : [phone] Referr ing Physic joan: NIKOLE TAREEN Exam Date: 025 Exam Descri ption: PET w CT, vertex to mid thigh, prosta te PSMA HISTOR Y: Prosta te cancer . Prosta tectom y. Recent PSA 0.11 TECHNI KARLA FACTOR S: Images were acquir ed from the vertex of the skull to mid thighs 50 minute s post inject ion of 7.95 mCi F-18 flotuf olasta t (Poslu ma). Axial, sparks l and sagitt al PET recons tructi ons with and withou t attenu ation correc tion were interp reted. Maikol rivas CT images were acquir ed and review ed alongs micha the PET images . The low dose unenha nced CT images were used for attenu ation correc tion and anatom ic correl ation only. Techno logist notes: attach ed COMPAR CALE: None. FINDIN GS: PET Findin gs: Prosta tectom y. No focal abnorm al tracer uptake in the prosta tectom y bed to sugges t local recurr ent neopla sm. Physio logic tracer uptake in the celiac gangli a. No tracer avid valdez or distan t metast atic diseas e. Tracer distri bution is otherw ise physio logic. Non-PE T Findin gs: Cerebr al volume is age approp riate. Aortic calcif icatio ns. Sparks ry calcif icatio ns. Heart size is normal . Calcif ied right upper lobe pulmon gi granul vonnie. Kidney s are symmet mike in size. No hydrou retero nephro sis. Mild scatte red subseg mental atelec tasis. Small fat contai desean left inguin al hernia . Degene rative change s of the spine. CONCLU VIRI: 1. Prosta tectom y. No focal abnorm al tracer uptake in the prosta tectom y bed to sugges t local recurr ent neopla sm. 2. No tracer avid valdez or distan t metast atic diseas e. Thank you for the opport [facility] to provid e your interp retati on. Jaylon cummings MD A: MS 2024 8:13 AM EST [facility] [place] [address], [place], [address], 07/14/2024 14:33:49 Result Notes Documentation Provider Name and Address Organization Details Recorded Time Psa, Total, Serum Or Plasma : General Interpretation LIZ Arguello [address] [place] [address],[address], [address] [place] [address], [facility] 01/21/2024 14:27:30 Psa, Total, Serum Or Plasma : General Interpretation LIZ Arguello [address] [place] [address],[address], [address] [place] [address], [facility] 07/22/2024 12:25:23 Psa, Total, Serum Or Plasma : General Interpretation LIZ Arguello [address] [place] [address],[address], [address] [place] [address], [facility] 10/28/2024 11:03:39 Problems Name Problem SNOMED Code Status Onset Date Resolution Date Notes Provider Name and Address Organization Details Recorded Time Spinal stenosis of lumbar region 96086354 Active Pamella chow [facility] 3 12:03:19 Malignant neoplasm of skin 449964947 Active 2018 Pamella chow [facility] 3 12:03:19 Hypertensive disorder 21046956 Active 2012 Pamella chow [facility] 3 12:03:19 Adenomatous polyp of colon 186962659 Active 2017 Pamella chow [facility] 3 12:03:19 Rupture of Achilles tendon 573486804 Active Pamella chow [facility] 3 12:03:19 Hyperlipidemia 29735334 Active 2015 Pamella chow [facility] 3 12:03:19 Problem Notes Documentation Provider Name and Address Organization Details Recorded Time Urologist Consult Note : [facility] [id number], Dave J (Legal name: Sarah Hemphilljennifer) (id #[id number], : 1950) Documents sent via fax will [...] received this fax in error, please visit [email or web address] to notify the sender and confirm that the information will be destroyed. If you do not have internet access, please call to notify the sender and confirm that the information will be destroyed. Thank you for your attention and cooperation. [ID:[id number]][facility] [address] [place] [address] [address] [place] [address] , Date: 07/21/2024RE: Sarah Bonner, : 1950, PT ID #[id number] Min MD, I would like to thank you for referring Sarah Bonner to our practice on 07/21/2024. I have enclosed a copy of the office evaluation for your records. Once again, thank you for allowing me to participate in the care of this patient. Sincerely, Electronically Signed by: LIZ ARGUELLO PASUP Encounter Reason/Date Prostate Cancer 07/21/2024 - 10:00AM - [facility] History of Present Adfugpw89 year old male with history of prostate cancer who is now s/p radical prostatectomy with Dr. Min on 06/17/21He was noted to have an elevated PSA of 4.85 ng/mLHe underwent prostate biopsy on 07/05/2020 which revealed Carlos A 6 prostate cancerHe underwent radical prostatectomy with Dr. Crump on 06/17/2021His surgical pathology revealed Carlos A 3+4 =7 disease.His surgical margins were positive, 2.5 mm positive margin at bladder [id number], grade group 2His most recent PSA was found to be 0.11 ng/mL (07/01/2024)PSMA obtained, which was negative for metastatic or recurrent disease (07/10/2024) He continues to struggle with erectile dysfunctionHe has tried multiple medications without successReview of SystemsCardiovascular:Cardio vascular: no palpitations or chest pain. Respiratory:Respiratory: no cough or shortness of breath. Gastrointestinal:Gastrointes tinal: no nausea, vomiting, constipation, GERD, or abdominal pain;no frequent diarrhea. Genitourinary:Genitourinary: no incontinence or difficulty urinating;no testicular: pain, no testicular: lump, no penile: lesion, no dysuria, no change in urinary stream, no hematuria.Physical ExamGeneral: Well nourished. Appears in good health. No acute distress. Neuro: Awake, alert, and oriented x 3. No focal neurologic signs. Motor function and sensation grossly intact. Psych: Mood is appropriate. Good judgement. Lungs: No dyspnea. Extremities: Warm and well perfused. Moves all four extremities equally. Skin: No edema.Procedure DocumentationBlood Draw/AFTER SCHOOL PROGRAM COORDINATOR/PSA RESULTS:Patient presents for the following blood tests: PSA total Patient drawn without difficulty. Results obtained: Will call with results. Drawn by: Patrick Graves/Plan73 year old male with history of prostate cancer who is now s/p radical prostatectomy with Dr. Min on 06/17/21 1. Malignant tumor of [id number]: Malignant neoplasm of prostate PSA , TOTAL - Specimen source: Blood venous Discussion NotesHx of prostate cancer:- Repeat PSA today and again in 3 months- We discussed that his PSA could be benign prostate cells vs. recurrence. Reassured low PSA and negative PSMA PET- Will keep a close eye on his PSA with every 3 month PSA checks. If it were to continue to rise, will repeat PSMA PET scan Return to Office [facility] for LAB BLOOD DRAW at [facility] on 10/27/2024 at 02:20 PM [facility] for LAB BLOOD DRAW at [facility] on 01/19/2025 at 10:30 AM LIZ Arguello for ESTABLISHED 20 at [facility] on 01/27/2025 at 09:40 AM Nikole Min MD [address] [place] [address], [phone], [facility] 07/24/2024 13:59:28 Urologist Consult Note : [facility] [address] [place] [id number], Dave J (Legal name: Sarah Bonner) (id #[id number], : 1950) Documents sent via fax will [...] received this fax in error, please visit [email or web address] to notify the sender and confirm that the information will be destroyed. If you do not have internet access, please call to notify the sender and confirm that the information will be destroyed. Thank you for your attention and cooperation. [ID:[id number]][facility] [place] [facility] [address] [place] [phone] , Date: 10/27/2024RE: Sarah Bonner, : 1950, PT ID #[id number] Min MD, I would like to thank you for referring Sarah Bonner to our practice on 10/27/2024. I have enclosed a copy of the office evaluation for your records. Once again, thank you for allowing me to participate in the care of this patient. Sincerely, Electronically Signed by: LIZ ARGUELLO, PAS Encounter Reason/Date LAB/BLOOD DRAW 10/27/2024 - 02:20PM - [facility] History of Present IllnessNone recordedReview of SystemsNone recordedPhysical ExamNone recordedProcedure DocumentationBlood Draw/AFTER SCHOOL PROGRAM COORDINATOR/PSA RESULTS:Patient presents for the following blood tests: PSA total Patient drawn without difficulty. Results obtained: Will call with results. Drawn by: Patrick Graves/Plan1.Malignant neoplasm of [id number]: Malignant neoplasm of prostate PSA , TOTAL - Specimen source: Blood venous Return to Office [facility] for LAB BLOOD DRAW at [facility] on 01/19/2025 at 10:30 AM LIZ Arguello for ESTABLISHED 20 at [facility] on 01/27/2025 at 09:40 AM Nikole Min MD [address] [place] [address], [phone], [facility] 10/28/2024 10:36:29 Procedures Surgical History Date Name Laterality Status Provider Name and Address Organization Details Recorded Time 10/28/19 25 Blood Draw/AFTER SCHOOL PROGRAM COORDINATOR/PSA RESULTS completed Patrick Peter [facility] 10/27/2024 15:13:31 07/22/19 25 Blood Draw/AFTER SCHOOL PROGRAM COORDINATOR/PSA RESULTS completed Patrick Peter [facility] 07/21/2024 11:26:05 07/08/[address] Scan-Skull Base to Mid Thigh completed Debra Bonilla [facility] 07/06/2024 21:37:28 07/01/19 25 Blood Draw/AFTER SCHOOL PROGRAM COORDINATOR/PSA RESULTS completed Melany Neal [facility] 07/01/2024 11:42:54 06/27/19 24 Colonoscopy completed Pamella Barker [facility] 07/10/2023 15:17:28 06/26/19 23 Blood Draw/AFTER SCHOOL PROGRAM COORDINATOR/PSA RESULTS completed Jenny WilkesMartinaGodwin [facility] 06/26/2022 11:59:43 06/27/19 22 Catheter Removal completed Alexia Cornejo [facility] 06/27/2021 10:17:53 07/05/19 21 Prostate Biopsy Procedure completed Nikole Min MD [address], [place], [address], [facility] 07/05/2020 13:38:34 07/05/19 21 URONAV completed Edu Salas [facility] 07/05/2020 11:40:03 07/05/19 21 Gentamicin Injection completed Madie Poe [facility] 07/05/2020 11:04:24 09/12/19 18 Diagnostic colonoscopy [...] Available Not Available Vitals Date Recorded Body weight Provider Name an d Address Organization Details Last Updated DateTime 07/10/2023 18546.59 g Pamella Barker [facility] 07/10/2023 15:11:57 Date Recorded Body height Body mass index (BMI) Provider Name and Address Organization Details Last Updated DateTime 07/10/2023 185.42 cm 24.4 kg/m2 Not Available Health Note 15:09:55 Date Recorded Body weight Body height Body mass index (BMI) Provider Name and Address Organization Details Last Updated DateTime 07/21/2024 35402.94117 72901 g 185.42 cm 24.4 kg/m2 Not Available Health Note 07/21/2024 10:48:29 Date Recorded Body height Provider Name an d Address Organization Details Last Updated DateTime 10/27/2024 185.42 cm Patrick Peter [facility] 10/27/2024 15:13:11 Social History Question [...] no Information not available 01/10/2022 Preferred Language Divehi Information not available 01/10/2022 Recreational Drug Use No Information not available 01/10/2022 Could You Be ? No Information not available 06/26/2022 Do You Have A Medical Power Of Back Seam Stitcher? Yes [email or web address] Information not available 07/17/2024 What Was The Date Of Your Most Recent Tobacco Screening? 07/21/2024 [email or web address] Information not available 07/17/2024 Have You Ever Been Counseled For Unhealthy Alcohol Use? No Information not available 07/10/2023 What Is Your Relationship Status? [email or web address] Information not available 07/17/2024 Are You Sexually Active? No [email or web address] Information not available 07/17/2024 Has Tobacco Cessation Counseling Been Provided? No Information not available 07/21/2024 On What Date Was Tobacco Cessation Counseling Provided? 07/21/2024 Information not available 07/21/2024 How Many Days [...] used smokeless tobacco? Never used smokeless tobacco [email or web address] Information not available 07/17/2024 Are you currently employed? No Information not available 06/26/2022 Do you or have you ever used e-cigarettes or vape? Never used electronic cigarettes [email or web address] Information not available 07/17/2024 Mental Status None recorded. Family History Relationship Description Onset Age of this Age Resolved Age Notes LastModified by Organization Details LastModified Time Unspecified Relation Family history of cardiac disorder [email or web address] Not available 2023 16:29:23 Medical History Condition Response Other N High Blood Pressure Y Kidney Stones N Depression N Sexually Transmitted Infection N Cancer Y Bleeding Disorder N Lung Disease N GERD/Acid Reflux N High Cholesterol Y Diabetes N Heart Disease N Immunizations Vaccine Type Date Status Note Provider Nam e and Address Organization Details Recorded Time SARS-COV-2 (COVID-19) vaccine, UNSPECIFIED 3 completed Not Available Health Note 07/06/2023 16:29:28 influenza, unspecified formulation 3 completed Not Available Health Note 07/06/2023 16:29:28 zoster live 9 completed THIAGO Farris [facility] 07/10/2023 15:12:04 pneumococcal polysaccharide PPV23 7 completed Not Available Health Note 07/06/2023 16:29:28 Pneumococcal conjugate PCV 13 7 completed Not Available Health Note 07/06/2023 16:29:28 Influenza, recombinant, quadrivalent, PF 0 completed [facility] 07/10/2023 15:12:03 Influenza, recombinant, quadrivalent, PF 9 completed Pamella [place] null, [facility] 07/10/2023 15:12:03 zoster recombinant 9 completed Pamella Mj null, [facility] 07/10/2023 15:12:03 zoster recombinant 9 completed Pamella Mj null, [facility] 07/10/2023 15:12:04 Influenza, high-dose, quadrivalent, PF 1 completed Pamella Mj null, [facility] 07/10/2023 15:12:04 COVID-19, mRNA, LNP-S, PF, 30 mcg/0.3 mL dose 1 completed Pamella Mj null, [facility] 07/10/2023 15:12:04 COVID-19, mRNA, LNP-S, PF, 30 mcg/0.3 mL dose 1 completed Pamella [place] null, [facility] 07/10/2023 15:12:04 COVID-19, mRNA, LNP-S, PF, 30 mcg/0.3 mL dose 1 completed Pamella [place] null, [facility] 07/10/2023 15:12:04 Tdap 6 completed Pamella Mj null, [facility] 07/10/2023 15:12:04 zoster live 6 completed Pamella [place] null, [facility] 07/10/2023 15:12:04 zoster live 4 completed Pamella [place] null, [facility] 07/10/2023 15:12:04 Influenza, high-dose, trivalent, PF 6 completed Pamella Mj null, [facility] 07/10/2023 15:12:04 Influenza, high-dose, trivalent, PF 7 completed Pamella [place] null, [facility] 07/10/2023 15:12:04 Influenza, high-dose, trivalent, PF 5 completed Pamella [place] null, [facility] 07/10/2023 15:12:04 Influenza, high-dose, trivalent, PF 8 completed Pamella Mj null, [facility] 07/10/2023 15:12:04 Influenza, split virus, quadrivalent, PF 4 completed Pamella [place] null, [facility] 07/10/2023 15:12:04 zoster live 0 completed Not Available Health Note 07/17/2024 10:22:09 influenza, unspecified formulation 4 completed Not Available Health Note 07/17/2024 10:22:09 pneumococcal polysaccharide PPV23 0 completed Not Available Health Note 07/17/2024 10:22:09 SARS-COV-2 (COVID-19) vaccine, UNSPECIFIED 4 completed Not Available Health Note 07/17/2024 10:22:09 COVID-19, mRNA, LNP-S, PF, 50 mcg/0.5 mL 4 completed Not Available [facility] 10/27/2024 15:14:13 COVID-19, mRNA, LNP-S, PF, 30 mcg/0.3 mL dose, murray-sucrose 2 completed Soledad Holly null, [facility] 07/21/2024 11:01:41 Pneumococcal conjugate PCV 13 6 completed Pamella [place] null, [facility] 07/10/2023 15:12:04 influenza, unspecified formulation 1 completed Pamella [place] null, [facility] 07/10/2023 15:12:04 pneumococcal polysaccharide PPV23 7 completed Pamella [place] null, [facility] 07/10/2023 15:12:04 SARS-COV-2 (COVID-19) vaccine, UNSPECIFIED 1 completed Pamella [place] null, [facility] 07/10/2023 15:12:04 SARS-COV-2 (COVID-19) vaccine, UNSPECIFIED 1 completed Pamella [place] null, [facility] 07/10/2023 15:12:04 Pneumococcal conjugate PCV 13 6 completed Pamella [place] null, [facility] 06/26/2022 12:03:28 pneumococcal polysaccharide PPV23 7 completed Pamella [place] null, [facility] 06/26/2022 12:03:28 influenza, unspecified formulation 1 completed Pamella [place] null, [facility] 07/10/2023 15:12:04 pneumococcal polysaccharide PPV23 7 completed Pamella [place] null, [facility] 06/26/2022 12:03:28 SARS-COV-2 (COVID-19) vaccine, UNSPECIFIED 2 completed Soledad [place] null, [facility] 07/21/2024 11:01:41 influenza, unspecified formulation 1 completed Pamella Mj null, [facility] 07/10/2023 15:12:04 Pneumococcal conjugate PCV 13 6 completed Pamella [place] null, [facility] 06/26/2022 12:03:28 SARS-COV-2 (COVID-19) vaccine, UNSPECIFIED 2 completed Soledad Potter null, [facility] 07/21/2024 11:01:41 pneumococcal polysaccharide PPV23 7 completed Pamella [place] null, [facility] 06/26/2022 12:03:28 influenza, unspecified formulation 1 completed Pamella [place] null, [facility] 07/10/2023 15:12:04 influenza, unspecified formulation 2 completed Pamella [place] null, [facility] 06/26/2022 12:03:28 Pneumococcal conjugate PCV 13 6 completed Pamella [place] null, [facility] 06/26/2022 12:03:28 SARS-COV-2 (COVID-19) vaccine, UNSPECIFIED 2 completed Soledad chow, [facility] 07/21/2024 11:01:41 pneumococcal polysaccharide PPV23 7 completed Pamella chow, [facility] 06/26/2022 12:03:28 Past Encounters Encounter ID Performer Location Encounter Start Date Encounter Closed Date Diagnosis/Indication Diagnosis SNOMED-CT Code Diagnosis ICD10 Code Diagnosis Note [id number] MD Miles Taylor [address] [place] [address],[place] [address] [place] [address] [phone] 07/05/2020 10:42:02 07/05/2020 11:25:54 Prostate specific antigen above reference range [id number] R97.20 [id number] [facility] [address] [place] [address],[place] [address] [place] [address] [phone] 07/05/2020 10:46:46 07/05/2020 14:18:31 Prostate specific antigen above reference range [id number] R97.20 uronav and standard biopsy done. [id number] MD Miles Taylor [address] [place] [address],[place] [address] [place] [address] [phone] 06/27/2021 10:09:24 06/27/2021 11:25:46 [id number] MD Fabiola Taylor_Catinao [facility] [address] [place] [address],[place] [address] [place] [address] [phone] 07/11/2021 10:03:01 07/11/2021 16:55:33 Malignant neoplasm of prostate [id number] C61 S/P ROBOT RP.DID HAVE 2.5MM POSITIVE MARGIN AT BLADDER NECK.WILL CHECK PSA IN 2 MONTHS AND THEN WE WILL DISCUSS POSSIBLE NEED FOR ADJUVANT RADIATIONC ONTINENCE COMING BACK NICELY [id number] DARIO MCKEON_Wokajal dbury [address] [facility],[address] [place] [address] [phone] 09/08/2021 10:01:08 09/08/2021 11:49:30 Erectile dysfunction following radical prostatectomy [id number] N52.31 Male urina ry stress incontinence [id number] N39.3 [id number] MD Fabiola Taylor_Woo dbury [address] [facility],[place] [place] [address] [phone] 10/03/2021 10:16:15 10/03/2021 10:43:14 Malignant neoplasm of prostate [id number] C61 S/P ROBOT RP.DID HAVE 2.5MM POSITIVE MARGIN AT BLADDER NECK.WILL CHECK PSA IN 2 MONTHS AND THEN WE WILL DISCUSS POSSIBLE NEED FOR ADJUVANT RADIATIONC ONTINENCE COMING BACK NICELY---- ----- 10-03-21 - OVERALL DOING GREAT.CONT INENT NOWWORKING ON ED NOW - USING VACUUM AND MEDSPSA IS UNDETECTAB LE(USING CIALIS)3 MONTHS OUTCHECK PSA IN 3 MONTHS(SARA Moya FOLLOW PSA CLOSELY - AND NO ADJUVANT RT AT THIS TIME, UNLESS PSA RECURS) [id number] DARIO MCKEONWoo dbury [address] [place] [address],[place] [place] [address] [place] [address] [phone] 01/10/2022 10:31:15 01/10/2022 11:32:16 Male urinary stress incontinence [id number] N39.3 Erectile d ysfunction following radical prostatectomy [id number] N52.31 [id number] LIZ Alexisro_Woo madyury [address] [place] [address],[address] [place] [address] [phone] 06/26/2022 11:54:41 06/26/2022 13:11:51 Malignant neoplasm of prostate [id number] C61 Primary er ectile dysfunction [id number] N52.9 [id number] LIZ AlexisroMelyWoo dbury [address] [facility],[address] [place] [address] [phone] 0 07/10/2023 15:09:13 07/10/2023 15:52:08 History of malignant neoplasm of prostate [id number] Z85.46 [id number] LIZ AlexisWoo madyury [address] [place] [address],[address] [place] [address] [phone] 07/01/2024 11:41:50 07/01/2024 11:43:51 Malignant neoplasm of prostate [id number] C61 [id number] LIZ Alexiso dbury [address] [place] [address],[address] [place] [address] [phone] 07/08/2024 13:51:59 07/11/2024 12:27:03 Malignant neoplasm of prostate [id number] C61 Prostate s pecific antigen above reference range [id number] R97.20 [id number] LIZ Alexiso dbury [address] [place] [address],[facility] e [address] [place] [address] [phone] 07/21/2024 10:47:43 07/21/2024 13:53:36 Malignant neoplasm of prostate [id number] C61 [id number] LIZ Alexiso dbury [address] [place] [address],[facility] e [address] [place] [address] [phone] 10/27/2024 15:12:14 10/27/2024 15:14:12 Malignant neoplasm of prostate [id number] C61 Health Concerns Section Related Observation LastModified by Organization Detai ls LastModified Time None Recorded Concern Status LastModified by Organization Details LastModified Time None Recorded Advance Directives Directive Y: Payers Insurance Date Sequence Insurance Name Policy Number Policy Brower Covered Member ID Brower Member ID Guarantor Name 10/24/2024 2 FOR LIFE ( - MEDICARE SUPPLEMENT) Sarah Bonner [id number] Sarah Bonner 10/24/2024 1 MEDICARE B-IN: [employer] [facility] Sarah Bonner [id number] Sarah Bonner Notes Date Note Type Note Provider Name and Address Organization Details Recorded Time 4 text/html 72 year old male with history of prostate cancer who is now s/p radical prostatectomy with Dr. Min on 06/17/21He was noted to have an elevated PSA of 4.85 ng/mLHe underwent prostate biopsy on 07/05/2020 which revealed [place] 6 prostate cancerHe underwent radical prostatectomy with Dr. Crump on 06/17/2021His surgical pathology revealed Carlos A 3+4 =7 disease.His surgical margins were positive, 2.5 mm positive margin at bladder [id number], grade group 2PSA has been <0.03 ng/mL since surgery He continues to struggle with erectile dysfunctionHe has tried multiple medications without success LIZ Arguello [address] [facility],[address], [place], [phone], [facility] 07/10/2023 15:36:28 5 text/html NameDKEISHA [id number]/26/51HT JE244Reon of Exam07/08/2024Time of Fens1713yclXlexchame PhysicianTAREENProstate Ca Diagnosis=T14Fuxsdgray SmjkD85Tmmouc PSA score.11Date of last PSA07/01/24ProstatectomyYRad TXNChemo TXNNHormone TXNBiopsyNBiopsy DateRecent CT ScanNRecent MRINRecent PET/CTNBone ScanNSurgeriesAny recent vaccinationN Approx Date and type Initial Treatment Strategy:Initial Staging Newly Confirmed Subsequent Treatment Strategy: Diagnosis CodeR97.21-Rising PSA following treatment neoplasm of prostateRestaging Technologist Notes:AgentPosluma Dose7.95mCi Injection [id number] Injection Siterac Injected by[facility] Scanned by[facility] Uptake [id number] Minutes/bed3 Debra Bonilla [facility] 07/09/2024 09:22:22 5 text/html 73 year old male with history of prostate cancer who is now s/p radical prostatectomy with Dr. Min on 06/17/21He was noted to have an elevated PSA of 4.85 ng/mLHe underwent prostate biopsy on 07/05/2020 which revealed Carlos A 6 prostate cancerHe underwent radical prostatectomy with Dr. Crump on 06/17/2021His surgical pathology revealed Carlos A 3+4 =7 disease.His surgical margins were positive, 2.5 mm positive margin at bladder [id number], grade group 2His most recent PSA was found to be 0.11 ng/mL (07/01/2024)PSMA obtained, which was negative for metastatic or recurrent disease (07/10/2024) He continues to struggle with erectile dysfunctionHe has tried multiple medications without success LIZ Arguello [address] [facility],[address], [place], [address], [facility] 07/21/2024 12:15:37
--- NOTE | 2024-11-13 13:51 | ED.CHESTPAIN ---
HPI - Chest Pain General Time Seen by Provider: 13:51 Date Seen: 11/13/24 Chief Complaint: Chest Pain Stated Complaint: Dizzy, BP High, Heartrate high, Pressure in chest Time Seen by Provider: 11/13/24 13:51 Source: patient and RN notes reviewed Mode of arrival: ambulatory Limitations: no limitations History of Present Illness HPI narrative: This 74-year-old male is coming in with elevated blood pressure, elevated heart rate, feeling anxious and with some intermittent left chest pressure or discomfort. He denies any prior cardiac or pulmonary history. Sunday he felt fine but he states the symptoms seem to be ramping up. Does not carry history of anxiety but does note he is leaving for [place] at the end of the week, will be gone for 2 weeks and does have anxiety with that. He is not short of breath. He has felt like his heart rate is elevated. No thyroid history. He does not use any illicit drugs, no stimulants. He is not short of breath. He did take his blood pressure at home as he was just feeling off and systolic was 190. He just does not feel right. He feels like his mouth is dry, like he could be dehydrated. He does walk every day but has not had significant outside exposure in the heat. Related Data Home Medications ?Medication ?Instructions ?Recorded ?Confirmed atorvastatin 20 mg tablet 20 mg PO DAILY 08/25/24 08/26/24 chlorthalidone 25 mg tablet 25 mg PO DAILY 08/25/24 08/26/24 cholecalciferol (vitamin D3) 25 25 mcg PO DAILY 08/25/24 08/26/24 mcg (1,000 unit) capsule metoprolol succinate 25 mg 25 mg PO DAILY 08/25/24 08/26/24 tablet,extended release 24 hr Allergies Allergy/AdvReac Type Severity Reaction Status Date / Time No Known Drug Allergies Allergy Verified 08/26/24 06:23 Review of Systems Status of ROS Reports: 6 or more systems reviewed and unremarkable except as noted in History and below [facility] Medical History Spondylolisthesis ?M43.10 - Spondylolisthesis, site unspecified (ICD-10) Prostate cancer ?C61 - Malignant neoplasm of prostate (ICD-10) Hyperlipidemia ?E78.5 - Hyperlipidemia, unspecified (ICD-10) Spinal stenosis of lumbar region ?M48.061 - Spinal stenosis, lumbar region without neurogenic claudication (ICD-10) Achilles tendon tear ?S86.019A - Strain of unspecified Achilles tendon, initial encounter (ICD-10) Hypertension ?I10 - Essential (primary) hypertension (ICD-10) Exam Const Vital Signs, click to edit/add: Vital Signs - 24 hr 11/13/24 13:46 11/13/24 13:50 11/13/24 14:00 Temperature 98.0 F Pulse Rate 98 90 Pulse Rate [Pulse Oximeter] 104 H Respiratory Rate 18 18 12 Blood Pressure Blood Pressure [Right Upper Arm] 176/87 H Pulse Oximetry 98 98 95 Oxygen Delivery Method Room Air 11/13/24 14:15 11/13/24 14:30 11/13/24 14:36 Temperature Pulse Rate 91 87 90 Pulse Rate [Pulse Oximeter] Respiratory Rate 23 Blood Pressure 151/75 H Blood Pressure [Right Upper Arm] Pulse Oximetry 97 96 96 Oxygen Delivery Method 11/13/24 14:45 11/13/24 15:00 11/13/24 15:15 Temperature Pulse Rate 80 84 89 Pulse Rate [Pulse Oximeter] Respiratory Rate 19 Blood Pressure Blood Pressure [Right Upper Arm] Pulse Oximetry 96 96 96 Oxygen Delivery Method 11/13/24 15:30 11/13/24 15:45 11/13/24 16:00 Temperature Pulse Rate 86 84 79 Pulse Rate [Pulse Oximeter] Respiratory Rate 14 11 L 15 Blood Pressure Blood Pressure [Right Upper Arm] Pulse Oximetry 95 95 95 Oxygen Delivery Method This 74-year-old male is alert, interactive, no apparent stress. He overall is very pleasant, does not seem to be anxious. Able to speak in complete sentences. Pupils are equal round reactive, extraocular muscles intact, no nystagmus. Sclera may have some slight yelling. Skin somewhat tanned, has many freckles but no rash or jaundice noted. Neck supple, no adenopathy, no thyromegaly masses or nodules. No jugular venous distension. It will sit up, lungs clear, good air entry, no wheezing or crackles. CV regular mildly fast rate and regular rhythm, no murmur, normal S1-S2, no S3-S4. Abdomen is soft, nontender, nondistended, no organomegaly. He has no lower extremity edema, was ambulatory into the ER. Documenting provider has reviewed patient's vital signs: yes Course Course ED Course: Patient did get an EKG on arrival from nursing staff, there are nonspecific T-wave depressions in inferior and lateral precordial leads. He will be on cardiac monitoring, pulse oximetry. Will stab lotion IV, I do think is likely to get CT imaging at least of his chest. Consideration for pulmonary emboli in dissection need to be entertained. It is possible he could be having some underlying ischemia, myocarditis, pericarditis although EKG does not have global ST segment changes that are elevated. Will give full complement of labs and monitor. The pressure in his chest has been intermittent, currently stable. Reevaluation(s) Time of Reevaluation #1: 14:36 Reevaluation #1: Lactate is mildly elevated, will initiate some IV fluids while awaiting labs. Infectious considerations will be entertained as well. Time of Reevaluation #2: 14:57 Reevaluation #2: Glucose is elevated at 239. Did and on a venous blood gas as well as a hemoglobin A1c. Will also obtain urinalysis. With IV fluids being initiated, blood pressure is down to 151/75 and pulse at 80. His potassium is low at 3.2 as well, will order some correction. Patient likely has relative dehydration potentially from hyperglycemia. Will need to wait on pending labs. Time of Reevaluation #3: 16:28 Reevaluation #3: Reviewed with patient that his potassium was low, lactate mildly elevated. Did also review this with the hospitalist, she did look through the chart. She thinks relative dehydration with diuretic and hypo kalemia from that. He is not diabetic. He did eat before coming in but was not completely hungry. We discussed stopping the chlorthalidone especially when going to [place] and being in the heat and traveling. He can follow up in clinic when he comes back. He he can monitor his blood pressure over the next couple days and just make sure it is not significantly escalating. We did discuss checking blood pressure and pulse if symptomatic. Pulse and blood pressure have come down with IV fluids. He did complete the 50 mEq effervescent potassium. Will have him eat some potassium rich foods over the next week to replete himself, should improve with stopping the chlorthalidone. Vital Signs Vital signs: Initial Vital Signs Temperature 98.0 F 11/13/24 13:46 Temperature Source Temporal Artery Scan 11/13/24 13:46 Pulse Rate 104 H 11/13/24 13:46 Respiratory Rate 18 11/13/24 13:46 Blood Pressure 176/87 H 11/13/24 13:46 Blood Pressure Mean 116 H 11/13/24 13:46 Blood Pressure Position Sitting 11/13/24 13:46 Pulse Oximetry 98 11/13/24 13:46 Oxygen Delivery Method Room Air 11/13/24 13:46 Vital Signs Temperature 98.0 F 11/13/24 13:46 Pulse Rate 104 H 11/13/24 13:46 Respiratory Rate 18 11/13/24 13:46 Blood Pressure 176/87 H 11/13/24 13:46 Pulse Oximetry 98 11/13/24 13:46 Oxygen Delivery Method Room Air 11/13/24 13:46 Temperature 98.0 F 11/13/24 13:46 Pulse Rate 79 11/13/24 16:00 Respiratory Rate 15 11/13/24 16:00 Blood Pressure 151/75 H 11/13/24 14:36 Pulse Oximetry 95 11/13/24 16:00 Oxygen Delivery Method Room Air 11/13/24 13:46 Medications Administered Medications: Discontinued Medications Generic Name Dose Route Start Last Admin Trade Name Freq PRN Reason Stop Dose Admin Sodium Chloride 1,000 mls @ 500 mls/hr 11/13/24 14:29 11/13/24 15:59 0.9 % Sodium Chloride 1000 Ml IV 11/13/24 16:28 Infused .Q2H ALLY Infusion Potassium Bicarbonate 50 meq 11/13/24 16:15 11/13/24 16:21 Potassium Bicarb 25 Meq Effervescent Tab PO 11/13/24 16:16 50 meq ONCE ONE Administration MDM - Chest Pain Lab Data Attestation: I reviewed the patient's lab results. Labs: Lab Results 11/13/24 11/13/24 11/13/24 Range/Units 14:10 14:57 15:15 WBC 9.32 (4.50-11.00) K/uL RBC 5.32 (4.30-5.90) m/uL Hgb 16.2 (13.5-17.5) gm/dL Hct 46.1 (37.0-53.0) % MCV 87 (80-100) fL MCH 31 (26-34) pg MCHC 35 (32-36) gm/dL RDW Coeff of [place] 13.0 (11.5-15.5) % Plt Count 309 (140-440) K/uL Neut % (Auto) 70.2 (42.0-72.0) % Lymph % (Auto) 20.6 (20-44) % Stark % (Auto) 8.5 (0.0-11.0) % Eos % (Auto) 0.3 (0.0-7.0) % Baso % (Auto) 0.3 (0.0-3.0) % Neut # (Auto) 6.54 (1.7-7.0) K/uL Lymph # (Auto) 1.92 (0.90-2.90) K/uL Stark # (Auto) 0.80 (0.00-0.90) K/UL Eos # (Auto) 0.03 (0.00-0.50) K/uL Baso # (Auto) 0.03 (0.00-0.30) K/uL Abs Immat Gran (auto) 0.01 (0.00-0.30) K/uL Imm/Tot Granulo (auto) 0.1 % INR 1.04 (0.91-1.10) APTT 24 (23-33) Seconds D-Dimer Quant (PE/DVT) < 0.27 (0.00-0.50) ug/ml VBG pH 7.457 H (7.32-7.43) VBG pCO2 45 (40-50) mmHG VBG pO2 < 30.1 (25-47) mmHG VBG HCO3 32 H (21-28) mmol/L Sodium 136 (135-149) mmol/L Potassium 3.2 L (3.6-5.1) mmol/L Chloride 96 (96-114) mmol/L Carbon Dioxide 32 (20-32) mmol/L Anion Gap 8 (7-15) mEq/L BUN 20 (7-30) mg/dL Creatinine 1.0 (0.5-1.5) mg/dL Estimated Creat Clear 73.24 Estimated GFR 79 ml/min Glucose 239 H (60-115) mg/dL Hemoglobin A1c 5.1 (0-5.6) % Lactate 2.1 H (0.5-1.9) mmol/L Calcium 9.1 (8.4-10.6) mg/dL Magnesium 1.9 (1.5-2.6) mg/dL Total Bilirubin 1.3 (0.1-1.5) mg/dL AST 35 (12-35) U/L ALT 28 (4-50) U/L Alkaline Phosphatase 62 (40-150) U/L Troponin I < 0.01 (0.01-0.04) ng/mL C-Reactive Protein < 0.5 L (0.5-1.0) mg/dL NT-Pro-B Natriuret Pep 87 (See Note) pg/mL Total Protein 7.5 (6.0-8.3) g/dL Albumin 4.5 (3.3-5.0) g/dL TSH 0.522 (0.270-4.200) uIU/mL Urine Color Yellow (Yellow) Urine Appearance Clear (Clear) Urine pH 6.0 (5.0-8.5) Ur Specific [place] 1.025 (1.000-1.030) Urine Protein Negative (Negative) Urine Glucose (UA) Trace A (Negative) Urine Ketones Negative (Negative) Urine Blood Negative (Negative) Urine Nitrite Negative (Negative) Urine Bilirubin Negative (Negative) Urine Urobilinogen 2.0 A (0.2-1.0) Ur Leukocyte Esterase Negative (Negative) Urine RBC 0-2 (0-2) Urine WBC 0-2 (0-5) Ur Squamous Epith Cells None (None-Few) Urine Bacteria Few A (None) Lab Acknowledgement Test Added Imaging Data Chest x-ray: Attestation: I have reviewed the pertinent imaging results. My impression: I do not see any acute pathology on my preliminary review, await radiology reading. Radiologist's impression: Patient: SARAH FINN Facility:?[facility] Patient ID:?[id number] Site Patient ID:?[id number]. Site :?[id number] Study:?XRay-Chest PORTABLE-11/13/2024 2:22:10 PM Ordering Physician:?Augustus Landry Final Report: Indication: Chest pain and pressure Technique: Chest 1 view Comparison: None Findings/Impression: Cardiovascular and mediastinum: Heart size and vasculature are normal in caliber and appearance. Lungs and pleural space: Lungs are clear. No sign of infiltrate or mass. No sign of pleural effusion. No pneumothorax. Bones and soft tissues: No acute findings. Dictated by Yash Abraham MD @ 11/13/2024 2:27:00 PM (Electronic Signature) ECG Data Attestation: I personally reviewed and interpreted this ECG as follows: (Normal sinus rhythm, 97 beats per minute. Nonspecific ST segment depression.) ECG interpretation date: 11/13/24 ECG interpretation time: 14:21 Prior ECG tracings: not available for review Discharge Plan Discharge Clinical Impression: Hypokalemia Chest pain Qualifiers: Chest pain type: other chest pain Qualified Code(s): R07.89 - Other chest pain Hypertension Qualifiers: Hypertension type: primary hypertension Qualified Code(s): I10 - Essential (primary) hypertension Patient Disposition: Home, Self-Care Condition: Stable Instructions: Chest Pain (ED), Potassium Content of Foods List (ED), Hypokalemia (ED) Additional Instructions: I would have you stop the chlorthalidone for now, I would not recommend taking it while you travel in [place]. Your blood pressure is going to need monitoring in you will need follow-up; you may need further medication management for your hypertension. We have not discovered any evidence of heart damage or heart attack at this time but I would recommend that you get scheduled for cardiac stress testing at some point, can talk to your primary care provider about this. Your potassium was low likely from the diuretic chlorthalidone that you are on. Try to eat potassium rich foods for few days, your body should replete this and should stabilize once off the diuretic. If you are not improving, have further concerns in the interim, please return to the ER for further evaluation. Your kidney functions with a basic metabolic panel should be rechecked at follow-up, glucose should be included with this. Your glucose was elevated here at 2:39 a.m. but your hemoglobin A1c was 5.1% and is definitely not a diabetic range. We did also check a thyroid which was normal. Your urinalysis was not showing any evidence of acute pathology. Urine culture will be done but there is no evidence on the urinalysis of infection at this time. Activity Level: Activity as Tolerated Discharge Diet: Heart Healthy (2 gm sodium, low fat) Prescriptions: No Action atorvastatin 20 mg tablet 20 mg PO DAILY chlorthalidone 25 mg tablet 25 mg PO DAILY cholecalciferol (vitamin D3) 25 mcg (1,000 unit) capsule 25 mcg PO DAILY metoprolol succinate 25 mg tablet extended release 24 hr 25 mg PO DAILY Follow Up/Referrals: Zaire Duong MD [Primary Care Provider, Family Practice] Stand Alone Forms: WISETIVI Info Instructions
--- NOTE | 2024-11-13 14:03 | CRLHL7_ITS ---
For Patients: As a result of the Century Cures Act, medical imaging exams and procedure reports are released immediately into your electronic medical record. You may view this report before your referring provider. If you have questions, please contact your health care provider. Indication: Chest pain and pressure Technique: Chest 1 view Comparison: None Findings/Impression: Cardiovascular and mediastinum: Heart size and vasculature are normal in caliber and appearance. Lungs and pleural space: Lungs are clear. No sign of infiltrate or mass. No sign of pleural effusion. No pneumothorax. Bones and soft tissues: No acute findings. Dictated by Yash Abraham MD @ 11/13/2024 2:27:00 PM (Electronically Signed)
[2024-11-13 14:26] LABS: Hematocrit 46.1 % (37.0-53.0); Hemoglobin* 16.2 gm/dL (13.5-17.5); Immature Granulocytes Abs Auto 0.01 K/uL (0.00-0.30); Immature Granulocytes Pct Auto 0.1 %; Lactate* 2.1 mmol/L (0.5-1.9); Lymphocytes Absolute Auto 1.92 K/uL (0.90-2.90); Mean Corpuscular HGB Conc 35 gm/dL (32-36); Mean Corpuscular Hemoglobin 31 pg (26-34); Mean Corpuscular Volume 87 fL (80-100); RDW Coefficient of Variation % 13.0 % (11.5-15.5); Red Blood Count 5.32 m/uL (4.30-5.90); White Blood Count* 9.32 K/uL (4.50-11.00)
[2024-11-13 14:28] LABS: Slide Review Reflex No
[2024-11-13 14:40] LABS: Albumin* 4.5 g/dL (3.3-5.0); Chloride* 96 mmol/L (96-114)
[2024-11-13 14:41] LABS: Potassium* 3.2 mmol/L (3.6-5.1); Sodium* 136 mmol/L (135-149)
[2024-11-13 14:43] LABS: Alanine Aminotransferase* 28 U/L (4-50); Aspartate Amino Transferase* 35 U/L (12-35); Blood Urea Nitrogen* 20 mg/dL (7-30); Creatinine* 1.0 mg/dL (0.5-1.5); Est. Creatinine Clearance* 73.24; Estimated Glomerular Filt Rate 79 ml/min
[2024-11-13 14:44] LABS: Alkaline Phosphatase* 62 U/L (40-150); Anion Gap 8 mEq/L (7-15); Bilirubin Total* 1.3 mg/dL (0.1-1.5); Calcium* 9.1 mg/dL (8.4-10.6); Carbon Dioxide* 32 mmol/L (20-32); Glucose* 239 mg/dL (60-115); Total Protein* 7.5 g/dL (6.0-8.3)
[2024-11-13 14:45] LABS: INR 1.04 (0.91-1.10); Prothrombin Time 14.4 Seconds
[2024-11-13 14:55] LABS: NT Pro B Type NatriureticPept* 87 pg/mL (See Note)
[2024-11-13 14:56] LABS: D Dimer Quantitative* < 0.27 ug/ml (0.00-0.50)
[2024-11-13 15:03] LABS: PCO2 VBG 45 mmHG (40-50); PO2 VBG < 30.1 mmHG (25-47); pH VBG 7.457 (7.32-7.43)
[2024-11-13 15:04] LABS: HCO3 VBG 32 mmol/L (21-28)
[2024-11-13 15:28] LABS: TSH With Reflex to FT4* 0.522 uIU/mL (0.270-4.200)
[2024-11-13 16:00] LABS: Appearance Urine Clear (Clear)
[2024-11-13] MEDS: POTASSIUM BICARB 25 MEQ EFFERVESCENT TAB 50 MEQ PO (16:21)
== END 2024-11-13 16:55 | disposition home or self-care (01) ==
PROVIDERS: Emergency Provider Family Medicine; PCP Surgery
DX: R07.89 Other chest pain (principal); I10 Essential (primary) hypertension; E87.6 Hypokalemia
CPT/HCPCS: 36415; 71045; 80053; 81001; 82803; 83036; 83605; 83735; 83880; 84443; 84484; 85025; 85379; 85610; 85730; 86140; 87086; 93005; 94761; 99284; 99285; A9270; J7030